=== PATIENT | female | born 1975 | race Caucasian/White ===

== ENCOUNTER 2016-12-19 18:43 | Emergency (ER) | payer MEDICAID ==
[~2016-12-19] VITALS: Ht 170.2 cm; Wt 77.7 kg
[~2016-12-19 18:43] MED LIST: ACET325T45 PO; ALBU18HF INHALATION; AMO500 PO; IBUP-1542 PO; MED4DP PO
[2016-12-19 19:03] VITALS: Ht 170.2 cm; Wt 77.7 kg
[2016-12-19] MEDS ORDERED: ONDANSETRON (ODT) 4 MG TAB ODT STA (20:45)
[2016-12-19] MEDS ORDERED: ALBUTEROL 0.5% (NEB) 2.5 MG/0.5 ML AMP NEB STA (20:45)
[2016-12-19] MEDS ORDERED: IPRATROPIUM (NEB) 0.5 MG/2.5 ML AMP NEB STA (20:45)
[2016-12-19] MEDS ORDERED: METHYLPREDNISOLONE 125 MG INJ IM STA (20:45)
[2016-12-19] MEDS ORDERED: ACET/BUTAL/CAFF/CODEINE CAP PO ONE (21:00)
--- NOTE | 2016-12-19 21:30 | ERD ---
ER Documentation Chief Complaint Date/Time DATE: 12/19/16 TIME: 21:27 Chief Complaint BUSTILLO X3 DAYS +SOB, DENIES COUGH +FEVER, +NAUSEA ONLY HPI 41-year-old female presents here in emergency department for complaint of dryness of breath, wheezing, headaches fever on-and-off and nausea started 2 days ago. Patient denies any cough. Patient has been having wheezing. Patient is complaining of headache, throbbing pain, 4/10 scale, not better or worse with anything. Patient has been having on and off fever, did not take any medication stop and symptoms. Patient is complaining of nausea but denies any vomiting. Patient denies abdominal pain. Patient denies any chest pain. Patient denies any flank pain. Patient denies hematuria or dysuria. Patient denies any other symptoms. ROS All systems reviewed and are negative except as per history of present illness. Medications Home Meds Active Scripts Methylprednisolone* (Medrol* DOSE PACK) 4 Mg/Dose-Pack Tab.ds.pk, 4 MG PO . DIRECTED, #1 PACKET Prov:SHEA REDDING PA-C 03/05/16 Albuterol Sulfate* (Ventolin HFA*) 18 Gm Hfa.aer.ad, 2 PUFF INHALATION Q4H, #1 INHALER Prov:SHEA REDDING PA-C 03/05/16 Ibuprofen* (Ibuprofen*) 600 Mg Tablet, 600 MG PO Q6H Y for pa, #30 TAB Prov:ZACKARY DAMICO ASSEMBLER 1ST SHIFT 09/10/15 Amoxicillin* (Amoxicillin*) 500 Mg Cap, 500 MG PO TID for 10 Days, CAP Prov:ZACKARY DAMICO ASSEMBLER 1ST SHIFT 09/10/15 Reported Medications Ibuprofen* (Motrin*) Unknown Strength Tab, PO Q6H Y for PAIN AND OR ELEVATED TEMP, #30 09/10/15 Acetaminophen* (Acetaminophen*) 325 Mg Tablet, 650 MG PO Q4H Y for PAIN AND OR ELEVATED TEMP, TAB 03/04/15 Allergies Allergies: Coded Allergies: No Known Allergies (Verified Allergy, Mild, 12/19/16) PMhx/Soc Medical and Surgical Hx: pt denies Surgical Hx History of Surgery: Yes (C. SECTION X1) Anesthesia Reaction: No Hx Neurological Disorder: No Hx Respiratory Disorders: No Hx Cardiac Disorders: No Hx Psychiatric Problems: No Hx Miscellaneous Medical Probl: Yes (MIGRAINES) Hx Alcohol Use: No Hx Substance Use: No Hx Tobacco Use: No Smoking Status: Never smoker FmHx Family History: No coronary disease, No diabetes, No other Physical Exam Vitals Vital Signs Date Time Temp Pulse Resp B/P Pulse Ox O2 Delivery O2 Flow Rate FiO2 12/19/16 21:03 88 20 99 21 12/19/16 19:03 98.8 85 20 156/93 100 Physical Exam GENERAL: The patient is well developed and appropriate for usual state of health, in no apparent distress. HEENT: Atraumatic. Ears: Normal tympanic membrane, no erythema or bulging. No ear canal swelling. No ear discharge. Nose: normal nasal turbinates, no erythema or swelling. Normal nasal discharge. Throat: oropharynx clear. No tonsillar swelling or tonsillar exudates. No lymphadenopathy. Tenderness on palpation of the frontal sinus and maxillary sinus area. CHEST: Diffuse wheezing bilaterally. There are no rales, crackles or rhonchi. HEART: Regular rate and rhythm. No murmurs, clicks, rubs or gallops. No S3 or S4. ABDOMEN: Soft, nontender and nondistended. Good bowel sounds. No rebound or guarding. No gross peritonitis. No gross organomegaly or masses. No Gresham sign or McBurney point tenderness. BACK: No midline or flank tenderness. EXTREMITIES: Equal pulses bilaterally. There is no peripheral clubbing, cyanosis or edema. No focal swelling or erythema. Full range of motion. Grossly neurovascularly intact. NEURO: Alert and oriented. Cranial nerves 2-12 intact. Motor strength in all 4 extremities with 5/5 strength. Sensation grossly intact. Normal speech and gait. Negative Romberg sign. Negative pronator drift. SKIN: There is no apparent rash or petechia. The skin is warm and dry. HEMATOLOGIC AND LYMPHATIC: There is no evidence of excessive bruising or lymphedema. No gross cervical, axillary, or inguinal lymphadenopathy. Results 24 hrs Current Medications Medications (Trade) Dose Ordered Sig/Alva Route PRN Reason Start Time Stop Time Status Last Admin Dose Admin Albuterol (Proventil 0.5% (Neb)) 5 mg ONCE STAT NEB 12/19/16 20:45 12/19/16 20:47 DC 12/19/16 21:03 Ipratropium [place] (Atrovent 0.02% (Neb)) 0.5 mg ONCE STAT NEB 12/19/16 20:45 12/19/16 20:47 DC 12/19/16 21:03 Methylprednisolone Sodium Succinate (Solu-Medrol) 125 mg ONCE STAT IM 12/19/16 20:45 12/19/16 20:47 DC 12/19/16 21:17 Acetam/Butalbital/ Caffeine/Codeine (Fioricet/ Codeine) 1 cap ONCE ONCE PO 12/19/16 21:00 12/19/16 21:01 DC 12/19/16 21:43 Ondansetron HCl (Zofran Odt) 4 mg ONCE STAT ODT 12/19/16 20:45 12/19/16 20:48 DC 12/19/16 21:16 Breathing treatment of albuterol and Atrovent was given here in emergency department, after treatment, patient's lungs sounds are clear and patient's oxygenation is better. Patient verbalized feeling much better.Patient was given medication for pain here in emergency department, after treatment, patient verbalized feeling much better. Patient's pain is improved.Patient was given Zofran here in the emergency department. After treatment, patient was able to tolerate po fluids here in the emergency department without any vomiting. There is no signs and symptoms of dehydration. PROCEDURE: CT head without Contrast CLINICAL INDICATION: Headache TECHNIQUE: Transaxial images were made through the head on a multi-slice scanner without intravenous contrast. Coronal and sagittal images were subsequently reformatted. One or more of the following dose reduction techniques were used: - Automated exposure control. - Adjustment of the mA and/or kV according to patient size. - Use of iterative reconstruction technique. Radiation dose: CTDIvol = 38.38 mGy; DLP = 554.95 mGy-cm. COMPARISON: None FINDINGS: The calvarium appears intact. Inflammatory changes seen involve the sphenoid sinus to the left of midline, the left ethmoid in the left frontal sinuses. The mastoid air cells are well-aerated.. The ventricles are normal in size and there is no midline shift. No intracranial bleed, mass, or extra-axial fluid collection is identified. There is good campos-white matter differentiation. IMPRESSION: 1. Sphenoid, left ethmoid and left frontal sinusitis. 2. Otherwise, unremarkable noncontrast enhance CT scan of the head. Physician Handy Date Time Electronically viewed and signed by Physician Handy on 12/19/2016 22:10 RH/ CC: ZACKARY DAMICO ASSEMBLER 1ST SHIFT PROCEDURE: XR Chest AP portable CLINICAL INDICATION: Asthma exacerbation TECHNIQUE: An AP portable radiograph of the chest was submitted. COMPARISON: 03/05/2016 FINDINGS: Support Hardware: None Cardiovascular: The cardiovascular silhouette appears unremarkable. Lung Murillo: The lung murillo appear clear with no nodule, alveolar infiltrate, or interstitial prominence evident. Pleural Spaces: No pneumothorax or pleural effusion is identified. Osseous Structures: The osseous structures appear intact. Soft Tissues: The soft tissues appear unremarkable. IMPRESSION: Stable and unremarkable portable chest. Physician Handy Date Time Electronically viewed and signed by Physician Handy on 12/19/2016 21:58 RH/ CC: ZACKARY DAMICO ASSEMBLER 1ST SHIFT Procedures/MDM Medical Decision Making: Patient symptoms are most likely consistent with acute bronchitis with acute sinusitis, most likely is viral initially but most can be having atypical infection with it because of the fever will be treated with antibiotic. There is low suspicion for Pneumonia at this time since patients lungs sounds are clear, patient O2 saturation is normal and patient doesnt show any respiratory distress. Patients chest xray doesnt show infiltrates or any other cardiopulmonary emergencies at this time. There is low suspicion for other cardiopulmonary emergencies at this time such as CHF, Pulmonary Embolism, Pneumothorax, Aortic Aneurysm or any other cardiopulmonary emergencies at this time. There is low suspicion for sepsis. Patient appears well and is hemodynamically stable. Fever is controlled with medicines. . There is low suspicion for neurological emergencies at this time since patients neurologic exam is normal. Patient did not have any altered level consciousness , vomiting, changes in balance or memory after incident. Patients CT scan of the head does not show any neurological emergencies at this time. Headache may be also from migraine. Disposition: Home. Condition: Stable Prescriptions: Azithromycin, Zyrtec, Flonase, ibuprofen and albuterol, Fioricet with codeine, Zofran, Prednisone Instructions: Patient is advised to take medications as prescribed. Patient is advised to rest. Patient advised to increase fluid intake, do humidifier at home and if possible, do salt water gargles. Patient is advised that if symptoms are worse, shortness of breath, uncontrolled fever, stridor, vomiting, worst signs and symptoms to return to emergency department immediately. Otherwise, patient is advised to follow up with primary doctor in 5-7 days. Departure Diagnosis: Primary Impression: Headache Headache type: unspecified Headache chronicity pattern: acute headache Intractability: not intractable Qualified Code: R51 - Acute nonintractable headache, unspecified headache type Additional Impressions: Acute bronchitis Bronchitis organism: unspecified organism Qualified Code: J20.9 - Acute bronchitis, unspecified organism Acute sinusitis Sinusitis location: maxillary Recurrence: not specified as recurrent Qualified Code: J01.00 - Acute maxillary sinusitis, recurrence not specified Condition: Stable Patient Instructions: Acute Bronchitis, Acute Sinusitis, Self-Care for Headaches Additional Instructions: Patient is advised to take medications as prescribed. Patient is advised to rest. Patient advised to increase fluid intake, do humidifier at home and if possible, do salt water gargles. Patient is advised that if symptoms are worse, shortness of breath, uncontrolled fever, stridor, vomiting, worst signs and symptoms to return to emergency department immediately. Otherwise, patient is advised to follow up with primary doctor in 5-7 days. ZACKARY DAMICO NP Dec 19, 2016 21:29
--- NOTE | 2016-12-19 21:58 | RADRPT ---
PROCEDURE: XR Chest AP portable CLINICAL INDICATION: Asthma exacerbation TECHNIQUE: An AP portable radiograph of the chest was submitted. COMPARISON: 03/05/2016 FINDINGS: Support Hardware: None Cardiovascular: The cardiovascular silhouette appears unremarkable. Lung Culp: The lung culp appear clear with no nodule, alveolar infiltrate, or interstitial promi nence evident. Pleural Spaces: No pneumothorax or pleural effusion is identified. Osseous Structures: The osseous structures appear intact. Soft Tissues: The soft tissues appear unremarkable. IMPRESSION: Stable and unremarkable portable chest. Physician Handy Date Time Electronically viewed and signed by Quique Lynne Physician on 12/19/2016 21:58 RH/
--- NOTE | 2016-12-19 22:11 | RADRPT ---
PROCEDURE: CT head without Contrast CLINICAL INDICATION: Headache TECHNIQUE: Transaxial images were made through the head on a multi-slice scanner without intraveno us contrast. Coronal and sagittal images were subsequently reformatted. One or more of the following dose reduction techniques were used: - Automated exposure control. - Adjustment of the mA and/or kV according to patient size. - Use of iterative reconstruction technique. Radiation dose: CTDIvol = 38.38 mGy; DLP = 554.95 mGy-cm. COMPARISON: None FINDINGS: The calvarium appears intact. Inflammatory changes seen involve the sphenoid sinus to the left of m idline, the left ethmoid in the left frontal sinuses. The mastoid air cells are well-aerated.. The ventricles are normal in size and there is no midline shift. No intracranial bleed, mass, or extra-axial fluid collection is identified. There is good campos-white matter differentiation. IMPRESSION: 1. Sphenoid, left ethmoid and left frontal sinusitis. 2. Otherwise, unremarkable noncontrast enhance CT scan of the head. Physician Handy Date Time Electronically viewed and signed by Physician Handy on 12/19/2016 22:10 /
[2016-12-19] MEDS ORDERED: PRED50TA PO (22:34)
[2016-12-19] MEDS ORDERED: CETI10CA PO (22:34)
[2016-12-19] MEDS ORDERED: IBUP-1542 PO (22:34)
[2016-12-19] MEDS ORDERED: FLUT9.9S NASAL (22:34)
[2016-12-19] MEDS ORDERED: FIORICET PO (22:34)
[2016-12-19] MEDS ORDERED: ALBU8.5H3 INH (22:34)
[2016-12-19] MEDS ORDERED: GUAI473L22 PO (22:34)
[2016-12-19] MEDS ORDERED: AZIT250T94 PO (22:34)
[2016-12-19 22:55] VITALS: BP 121/65; PULSE 99; RESP 18
== END 2016-12-19 22:56 | disposition home or self-care (01) ==
LOC: FTE 18:43
DX: R51 Headache (principal); J20.9 Acute bronchitis, unspecified; J01.00 Acute maxillary sinusitis, unspecified; R06.02 Shortness of breath; R11.0 Nausea
CPT/HCPCS: 70450; 71010; 94664; 96372; J2930; Z7502; Z7610

== ENCOUNTER 2017-02-04 22:41 | Emergency (ER) | payer MEDICAID ==
[~2017-02-04 22:41] MED LIST changes: +ALBU8.5H3 INH; +AZIT250T94 PO; +CETI10CA PO; +FIORICET PO; +FLUT9.9S NASAL; +GUAI473L22 PO; +PRED50TA PO
--- NOTE | 2017-02-04 23:24 | ERD ---
ER Documentation Chief Complaint Date/Time DATE: 02/04/17 TIME: 23:23 Chief Complaint Vaginal spotting started tonight HPI 41-year-old female presents to emergency department for complaints of vaginal bleeding started tonight. Patient describes the bleeding as spotting, denies any abdominal pain or flank pain. Patient is 7 para 3 3. Patient states that she started to have the spotting after having sexual intercourse. Patient denies any fever or chills. Patient denies any nausea or vomiting. LMP 11/18/2016. ROS All systems reviewed and are negative except as per history of present illness. Medications Home Meds Active Scripts Acetamin/Butalbital/Caffeine* (Fioricet*) [id number] Tab, 1 TAB PO Q6H Y for PAIN, #30 TAB Prov:ZACKARY DAMICO NP 12/19/16 Prednisone* (Prednisone*) 50 Mg Tablet, 50 MG PO DAILY, #5 TAB Prov:ZACKARY DAMICO NP 12/19/16 Albuterol Sulfate* (Proair HFA*) 8.5 Gm Hfa.aer.ad, 2 PUFF INH Q4H Y for WHEEZING AND SOB, #1 INHALER Prov:ZACKARY DAMICO NP 12/19/16 Guaifenesin-Codeine Phosphate* (Guaifenesin* AC Cough Syrup) 473 Ml Liquid, 5 ML PO Q4H Y for COUGH, #120 ML Prov:ZACKARY DAMICO NP 12/19/16 Cetirizine Hcl* (Zyrtec*) 10 Mg Capsule, 10 MG PO DAILY, #30 TAB.CHEW Prov:ZACKARY DAMICO NP 12/19/16 Fluticasone Propionate (Flonase Allergy Relief) 9.9 Ml [place].susp, 1 SPRAY NASAL BID, #1 BOTTLE TO EACH NOSTRIL Prov:ZACKARY DAMICO NP 12/19/16 Ibuprofen* (Motrin*) 600 Mg Tab, 600 MG PO Q6H Y for PAIN AND OR ELEVATED TEMP, #30 TAB Prov:ZACKARY DAMICO NP 12/19/16 Azithromycin* (Zithromax*) 250 Mg Tablet, 250 MG PO .ZPACK DIRECTED, #6 TAB TAKE 500 MG (2 TABS) THE FIRST DAY THEN 250 MG (1 TAB) DAYS 2-5 Prov:ZACKARY DAMICO NP 12/19/16 Methylprednisolone* (Medrol* DOSE PACK) 4 Mg/Dose-Pack Tab.ds.pk, 4 MG PO . DIRECTED, #1 PACKET Prov:SHEA REDDING PA-C 03/05/16 Albuterol Sulfate* (Ventolin HFA*) 18 Gm Hfa.aer.ad, 2 PUFF INHALATION Q4H, #1 INHALER Prov:SHEA REDDING PA-C 03/05/16 Ibuprofen* (Ibuprofen*) 600 Mg Tablet, 600 MG PO Q6H Y for pa, #30 TAB Prov:ZACKARY DAMICO NP 09/10/15 Amoxicillin* (Amoxicillin*) 500 Mg Cap, 500 MG PO TID for 10 Days, CAP Prov:ZACKARY DAMICO NP 09/10/15 Reported Medications Ibuprofen* (Motrin*) Unknown Strength Tab, PO Q6H Y for PAIN AND OR ELEVATED TEMP, #30 09/10/15 Acetaminophen* (Acetaminophen*) 325 Mg Tablet, 650 MG PO Q4H Y for PAIN AND OR ELEVATED TEMP, TAB 03/04/15 Allergies Allergies: Coded Allergies: No Known Allergies (Verified Allergy, Mild, 12/19/16) PMhx/Soc History of Surgery: Yes (C. SECTION X1) Anesthesia Reaction: No Hx Neurological Disorder: No Hx Respiratory Disorders: No Hx Cardiac Disorders: No Hx Psychiatric Problems: No Hx Miscellaneous Medical Probl: Yes (MIGRAINES) Hx Alcohol Use: No Hx Substance Use: No Hx Tobacco Use: No FmHx Family History: No coronary disease, No diabetes, No other Physical Exam Physical Exam GENERAL: The patient is well developed and appropriate for usual state of health, in no apparent distress. CHEST: Clear to auscultation bilaterally. There are no rales, wheezes or rhonchi. HEART: Regular rate and rhythm. No murmurs, clicks, rubs or gallops. No S3 or S4. ABDOMEN: Soft, nontender and nondistended. Good bowel sounds. No rebound or guarding. No gross peritonitis. No gross organomegaly or masses. No Gresham sign or McBurney point tenderness. BACK: No midline or flank tenderness. EXTREMITIES: Equal pulses bilaterally. There is no peripheral clubbing, cyanosis or edema. No focal swelling or erythema. Full range of motion. Grossly neurovascularly intact. NEURO: Alert and oriented. Cranial nerves 2-12 intact. Motor strength in all 4 extremities with 5/5 strength. Sensation grossly intact. Normal speech and gait. SKIN: There is no apparent rash or petechia. The skin is warm and dry. HEMATOLOGIC AND LYMPHATIC: There is no evidence of excessive bruising or lymphedema. No gross cervical, axillary, or inguinal lymphadenopathy. VAGINAL: Small amount of blood in the vaginal vault, cervical os is closed. No adnexal tenderness or cervical motion tenderness noted. Result Diagram: 02/04/17 2325 Results 24 hrs Laboratory Tests Test 02/04/17 23:27 02/04/17 23:35 White Blood Count 10.010^3/ul Red Blood Count 4.1810^6/ul Hemoglobin 12.7g/dl Hematocrit 36.9% Mean Corpuscular Volume 88.3fl Mean Corpuscular Hemoglobin 30.4pg Mean Corpuscular Hemoglobin Concent 34.4g/dl Red Cell Distribution Width 12.4% Platelet Count 18327^3/UL Mean Platelet Volume 11.0fl Neutrophils % 58.4% Lymphocytes % 28.4% Monocytes % 8.9% Eosinophils % 3.4% Basophils % 0.6% Nucleated Red Blood Cells % 0.0/100WBC Neutrophils # 5.810^3/ul Lymphocytes # 2.810^3/ul Monocytes # 0.910^3/ul Eosinophils # 0.310^3/ul Basophils # 0.110^3/ul Nucleated Red Blood Cells # 0.010^3/ul Beta HCG, Quantitative 617053.0mIU/ml Urine Color LT. YELLOW Urine Clarity CLEAR Urine pH 6.5 Urine Specific [place] 1.015 Urine Ketones NEGATIVE Urine Nitrite NEGATIVE Urine Bilirubin NEGATIVE Urine Urobilinogen 0.2 E.U./dL Urine Leukocyte Esterase NEGATIVE Urine Microscopic RBC 10-25/HPF Urine Microscopic WBC 0-2/HPF Urine Squamous Epithelial Cells FEW Urine Bacteria FEW Urine Hemoglobin 2+ Urine Glucose NEGATIVE% Urine Total Protein NEGATIVE PROCEDURE: Obstetrical ultrasound. CLINICAL INDICATION: Vaginal bleeding. TECHNIQUE: Multiple sonographic images of the pelvis were obtained with transabdominal technique. Images were obtained with campos scale and color Doppler. COMPARISON: No prior studies are available for comparison. FINDINGS: No abnormal uterine mass is identified. There is an intrauterine gestational sac with a pole identified. heart tones of 184 beats per minute are identified. The crown-rump length averages 3.04 cm, compatible with 10 weeks and 0 days. The mean sac diameter averages 3.30 cm, compatible with 8 weeks and 3 days. A yolk sac is identified. A small subchorionic collection is identified. There is no pelvic free fluid. Bilateral ovaries are not visualized. There is no suspicious adnexal mass identified. IMPRESSION: Single live intrauterine with an estimated gestational age of 9 weeks and 2 days, with an ultrasound SUZANNA of 09/07/2017. Small subchorionic hemorrhage. Bilateral ovaries not visualized. .Iggy Salas MD, MD Date Time Electronically viewed and signed by .Iggy Salas MD, MD on 02/05/2017 01:12 .T/ CC: ZACKARY DAMICO ARTILLERY OFFICER Procedures/MDM Medical Decision Making: Patients vaginal bleeding is most likely consistent of possible threatened . Patient does not show any evidence of hypovolemic shock. Patients hemoglobin and hematocrit is stable. There is low suspicion for ectopic . JASON results show 9 week with subchorionic hemorrhage. BetaHCGQuantitative is appropriate for .The patient is Rh+, does not need RhoGAM this time. There is no signs of symptoms of dehydration. There is low suspicion for sepsis. Patient appears well and is hemodynamically stable. Disposition: Home. Condition: Stable Instructions: Patient is advised to do bed rest, avoid heavy lifting, and avoid having sex until cleared by OB doctor. Patient is advised to follow up with OB doctor or here at the ER in 48 hours for reevaluation of symptoms, repeat beta HCG quantitative and ultrasound. Patient is advised that is symptoms are worst, severe bleeding, dizziness, severe abdominal pain, fever, worst signs and symptoms to return to the emergency department immediately. Departure Diagnosis: Primary Impression: Vaginal bleeding in patient at less than 20 weeks gestation Additional Impressions: Subchorionic bleed Fetus number: single or unspecified fetus Trimester: unspecified trimester Qualified Code: O41.8X90 - Subchorionic bleed, unspecified trimester, not applicable or unspecified fetus Intrauterine Condition: Stable Patient Instructions: Bleeding During Early Additional Instructions: Patient is advised to do bed rest, avoid heavy lifting, and avoid having sex until cleared by OB doctor. Patient is advised to follow up with OB doctor or here at the ER in 48 hours for reevaluation of symptoms, repeat beta HCG quantitative and ultrasound. Patient is advised that is symptoms are worst, severe bleeding, dizziness, severe abdominal pain, fever, worst signs and symptoms to return to the emergency department immediately. ZACKARY DAMICO NP Feb 04, 2017 23:24
[2017-02-05 00:02] LABS: ADD SCAN DIFF NO
[2017-02-05 00:05] LABS: BASOPHIL # 0.1 10^3/ul (0.0-0.1); BASOPHILS % 0.6 % (0.0-2.0); EOSINOPHILS # 0.3 10^3/ul (0.0-0.5); EOSINOPHILS % 3.4 % (0.0-7.0); HEMATOCRIT 36.9 % (37.0-47.0); HEMOGLOBIN 12.7 g/dl (12.0-16.0); LYMPHOCYTES # 2.8 10^3/ul (0.8-2.9); LYMPHOCYTES % 28.4 % (15.0-51.0); MEAN CORPUSCULAR HEMOGLOBIN 30.4 pg (29.0-33.0); MEAN CORPUSCULAR HGB CONC 34.4 g/dl (32.0-37.0); MEAN CORPUSCULAR VOLUME 88.3 fl (82.0-101.0); MONOCYTE # 0.9 10^3/ul (0.3-0.9); MONOCYTES % 8.9 % (0.0-11.0); NEUTROPHIL # 5.8 10^3/ul (1.6-7.5); NEUTROPHILS % 58.4 % (39.0-77.0); PLATELET COUNT 219 10^3/UL (140-415); RED BLOOD COUNT 4.18 10^6/ul (4.20-5.40); RED CELL DISTRIBUTION WIDTH 12.4 % (11.5-14.5)
[2017-02-05 00:17] LABS: ADD UMIC YES; URINE BILIRUBIN (Dip) NEGATIVE (NEGATIVE); URINE BLOOD (Dip) 2+ (NEGATIVE); URINE COLOR LT. YELLOW (YELLOW); URINE GLUCOSE (Dip) NEGATIVE (NEGATIVE); URINE KETONES (Dip) NEGATIVE (NEGATIVE); URINE LEUKOCYTE ESTERASE (Dip) NEGATIVE (NEGATIVE); URINE NITRITE (Dip) NEGATIVE (NEGATIVE); URINE TOTAL PROTEIN (Dip) NEGATIVE (NEGATIVE); URINE UROBILINOGEN (Dip) 0.2 E.U./dL (0.1-1.0)
[2017-02-05 01:11] LABS: SQUAMOUS EPITHELIAL CELL,UR FEW
[2017-02-05 01:12] LABS: BACTERIA,URINE FEW
--- NOTE | 2017-02-05 01:13 | RADRPT ---
PROCEDURE: Obstetrical ultrasound. CLINICAL INDICATION: Vaginal bleeding. TECHNIQUE: Multiple sonographic images of the pelvis were obtained with transabdominal technique. Images were obtained with campos scale and color Doppler. COMPARISON: No prior studies are available for comparison. FINDINGS: No abnormal uterine mass is identified. There is an intrauterine gestational sac with a pole i dentified. heart tones of 184 beats per minute are identified. The crown-rump length ave rages 3.04 cm, compatible with 10 weeks and 0 days. The mean sac diameter averages 3.30 cm, compatib le with 8 weeks and 3 days. A yolk sac is identified. A small subchorionic collection is identified. There is no pelvic free fluid. Bilateral ovaries are not visualized. There is no suspicious adnexal mass identified. IMPRESSION: Single live intrauterine with an estimated gestational age of 9 weeks and 2 days, with an ultrasound SUZANNA of 09/07/2017. Small subchorionic hemorrhage. Bilateral ovaries not visualized. .Iggy Salas MD, MD Date Time Electronically viewed and signed by .Iggy Salas MD, on 02/05/2017 01:12 .T/
[2017-02-05 03:07] VITALS: BP 137/74; PULSE 71; RESP 16
== END 2017-02-05 03:07 | disposition home or self-care (01) ==
LOC: FTE 22:41
DX: O20.9 Hemorrhage in early pregnancy, unspecified (principal); O41.8X90 Other specified disorders of amniotic fluid and membranes, unspecified trimester, not applicable or unspecified; Z3A.09 9 weeks gestation of pregnancy
CPT/HCPCS: 36415; 76801; 81001; 81003; 84702; 85025; 86900; 86901

== ENCOUNTER 2017-07-23 21:14 | Outpatient (CLI) | payer MEDICAID ==
[~2017-07-23] VITALS: Ht 160 cm; Wt 82.9 kg
[~2017-07-23 21:14] MED LIST changes: -AMO500 PO; +AMOX500C2 PO
[2017-07-23 21:58] VITALS: Ht 160 cm; Wt 82.9 kg
[2017-07-23 22:09] LABS: ADD UMIC NO; UR ASCORBIC ACID NEGATIVE (NEGATIVE); UR BACTERIA FEW /HPF (NONE SEEN); UR BILIRUBIN (Dip) NEGATIVE (NEGATIVE); UR BLOOD (Dip) NEGATIVE (NEGATIVE); UR CLARITY SLIGHTLY CLOUDY (CLEAR); UR COLOR YELLOW (YELLOW); UR GLUCOSE (Dip) NEGATIVE (NEGATIVE); UR KETONES (Dip) NEGATIVE (NEGATIVE); UR LEUKOCYTE ESTERASE (Dip) NEGATIVE Leu/ul (NEGATIVE); UR MUCUS FEW /HPF (NONE SEEN); UR NITRITE (Dip) NEGATIVE (NEGATIVE); UR RBC 1 /HPF (0-5); UR SPECIFIC GRAVITY (Dip) 1.014 (1.003-1.030); UR SQUAMOUS EPITHELIAL CELL MANY /HPF (FEW); UR TOTAL PROTEIN (Dip) NEGATIVE (NEGATIVE); UR UROBILINOGEN (Dip) NEGATIVE (NEGATIVE)
[2017-07-23] MEDS ORDERED: HYDR250V5 IM (22:22)
--- NOTE | 2017-07-23 22:52 | TRIAGE ---
OB Triage Datetime Report Generated by CPN: 07/23/2017 22:52 Datetime: 07/23/2017 22:51 Stage of : OB Triage Datetime: 07/23/2017 22:03 Vaginal Exam Dilatation (cms): 1.0 Effacement (%): 50 Station: -3 Exam By: gstratton rn Datetime: 07/23/2017 22:00 Labor Evaluation Frequency: 12-14 Monitor Mode: External Duration (sec)2399: 60-80 Pattern: Normal: <= 5 Contractions in 10 Minutes Contraction Comments: IRREGULAR PATTERN Heart Rate FHR Baseline Rate: 135 Monitor Mode: External US FHR Baseline Changes: No Baseline Change Variability: Moderate 6-25 bpm Accelerations: 15X15 Decelerations: None Category: Category I Datetime: 07/23/2017 21:45 Stage of : OB Triage Maternal Assessment Level of Consciousness: Fully Conscious Headache: Denies Blurred Vision: No Respiratory Effort: Unlabored; Regular Rhythm; Equal Expansion Nausea/Vomiting: Denies RUQ Epigastric Pain: Denies Facial Edema: None Fall Risk Assessment History of Falling: (0) No Secondary Diagnosis: (0) No Ambulatory Aid: (0) Bedrest/Nurse Assist IV Therapy: (0) No Gait: (0) Normal/Bedrest/Immobile Mental Status: (0) Oriented to Own Ability Fall Score: 0 Fall Risk Score Definition: No Risk: No action required Datetime: 07/23/2017 21:44 Time of Arrival: 07/23/2017 21:04 EGA: 35.1 Arrived By: Ambulatory Arrived From: Home Chief Complaint: UC'S SINCE 16:00 Movement: Present Contractions: Irregular Contractions: Q5MIN Rupture of Membranes: Denies Vaginal Bleeding: None Vaginal Discharge: Denies Abdominal Trauma: Not Applicable Patient Complaints: Contractions Time Provider Notified: 07/23/2017 22:00 Provider Notified: UAJE Initial Plan: EFM, CALL OB Datetime: 07/23/2017 21:36 Pain Assessment Pain Scale: 4 Pain Type: Pressure Pain Location: Abdomen Pain Goal: 0 Datetime: 07/23/2017 21:33 Monitor Mode: Palpation Resting Tone [place]: Relaxed Monitor Mode: External US
--- NOTE | 2017-07-23 22:56 | PN ---
Triage Information Date/Time Reason for visit: Uterine contractions Weeks of Gestation 35w 1d /Para , h/o PTD by in 1996 with 2 subsequent VBACs Hypertention: induced Objective Heart Rate: 130's Contractions: >10 Minutes Apart Exam /3 Results/Medications Results 24 hrs Laboratory Tests Test 07/23/17 21:55 Urine Color YELLOW Urine Clarity SLIGHTLY CLOUDY A Urine pH 6.0 Urine Specific [place] 1.014 Urine Ketones NEGATIVE Urine Nitrite NEGATIVE Urine Bilirubin NEGATIVE Urine Urobilinogen NEGATIVE Urine Leukocyte Esterase NEGATIVE Urine Microscopic RBC 1 Urine Microscopic WBC 2 Urine Squamous Epithelial Cells MANY A Urine Bacteria FEW A Urine Mucus FEW A Urine Hemoglobin NEGATIVE Urine Glucose NEGATIVE Urine Total Protein NEGATIVE Disposition: Discharge Assessment/Plan 42 y/o at 35w 1d with contractions -not in active labor -getting Alize -f/u in clinic. Patient with moderately elevated BPs followed in clinic, will be getting f/u in clinic for BPs per patient report. FAUZIA WILLIS Jul 23, 2017 22:56
== END 2017-07-23 23:15 | disposition home or self-care (01) ==
LOC: L-D 21:14 → OBT 21:14
PROVIDERS: ATTEND Obstetrics & Gynecology
DX: O62.9 Abnormality of forces of labor, unspecified (principal); O13.3 Gestational [pregnancy-induced] hypertension without significant proteinuria, third trimester; Z3A.35 35 weeks gestation of pregnancy
CPT/HCPCS: 81001; Z7500; 81003; G0463

== ENCOUNTER 2017-07-27 16:58 | Outpatient (CLI) | payer MEDICAID ==
[~2017-07-27] VITALS: Ht 160 cm; Wt 80.5 kg
[~2017-07-27 16:58] MED LIST changes: -ACET325T45 PO; -ALBU18HF INHALATION; -ALBU8.5H3 INH; -AMOX500C2 PO; -AZIT250T94 PO; -CETI10CA PO; -FIORICET PO; -FLUT9.9S NASAL; -GUAI473L22 PO; +HYDR250V5 IM; -IBUP-1542 PO; -MED4DP PO; -PRED50TA PO
[2017-07-27 17:20] VITALS: Ht 160 cm; Wt 80.5 kg
[2017-07-27 17:21] VITALS: BP 141/69; PULSE 71; RESP 18
--- NOTE | 2017-07-27 17:38 | RADRPT ---
PROCEDURE: OB ultrasound for biophysical profile CLINICAL INDICATION: PIH. TECHNIQUE: Multiple sonographic images of the pelvis were obtained. Transabdominal view of the gr avid uterus are available for review. The images were reviewed on a PACS workstation. COMPARISON: 02/05/2017. FINDINGS: breathing movement = 2/2 tone = 2/2 motion = 2/2 Quantitative amniotic fluid volume = 2/2 MELINDA = 8.4 cm Single live intrauterine with cardiac activity at 168 beats per minute. There is a fundal placenta without previa or abruption. IMPRESSION: 1. Single living intrauterine gestation in cephalic position. 2. Biophysical profile = 8/8. 3. MELINDA = 8.4 cm. RPTAT: [facility] Physician Oswaldo Date Time Electronically viewed and signed by Physician Oswaldo on 07/27/2017 17:38 /
[2017-07-27] MEDS ORDERED: PREN1TAB13 PO (17:43)
[2017-07-27 17:54] LABS: BASOPHILS % 0.3 % (0.0-2.0); EOSINOPHILS # 0.2 10^3/ul (0.0-0.5); EOSINOPHILS % 2.9 % (0.0-7.0); HEMOGLOBIN 11.9 g/dl (12.0-16.0); LYMPHOCYTES # 1.8 10^3/ul (0.8-2.9); LYMPHOCYTES % 28.9 % (15.0-51.0); MEAN CORPUSCULAR HEMOGLOBIN 30.7 pg (29.0-33.0); MEAN CORPUSCULAR VOLUME 87.6 fl (82.0-101.0); MEAN PLATELET VOLUME 12.3 fl (7.4-10.4); MONOCYTE # 0.6 10^3/ul (0.3-0.9); MONOCYTES % 9.3 % (0.0-11.0); NEUTROPHIL # 3.6 10^3/ul (1.6-7.5); NEUTROPHILS % 58.3 % (39.0-77.0); PLATELET COUNT 170 10^3/UL (140-415); RED BLOOD COUNT 3.88 10^6/ul (4.20-5.40); RED CELL DISTRIBUTION WIDTH 12.8 % (11.5-14.5); WHITE BLOOD COUNT 6.2 10^3/ul (4.8-10.8)
[2017-07-27 18:18] LABS: ADD UMIC NO; UR ASCORBIC ACID NEGATIVE (NEGATIVE); UR BILIRUBIN (Dip) NEGATIVE (NEGATIVE); UR BLOOD (Dip) NEGATIVE (NEGATIVE); UR CLARITY SLIGHTLY CLOUDY (CLEAR); UR COLOR YELLOW (YELLOW); UR GLUCOSE (Dip) NEGATIVE (NEGATIVE); UR KETONES (Dip) NEGATIVE (NEGATIVE); UR LEUKOCYTE ESTERASE (Dip) NEGATIVE Leu/ul (NEGATIVE); UR MUCUS FEW /HPF (NONE SEEN); UR NITRITE (Dip) NEGATIVE (NEGATIVE); UR RBC 1 /HPF (0-5); UR SPECIFIC GRAVITY (Dip) 1.017 (1.003-1.030); UR SQUAMOUS EPITHELIAL CELL FEW /HPF (FEW); UR TOTAL PROTEIN (Dip) NEGATIVE (NEGATIVE); UR UROBILINOGEN (Dip) NEGATIVE (NEGATIVE)
[2017-07-27 18:27] LABS: INR 0.97; PROTIME 12.9 Sec (12.2-14.2)
[2017-07-27 18:28] LABS: PARTIAL THROMBOPLASTIN TIME 26.3 Sec (25.0-35.0)
[2017-07-27 18:29] LABS: ALBUMIN 3.1 g/dl (3.3-4.9); ALBUMIN/GLOBULIN RATIO 0.83; BILIRUBIN,INDIRECT 0.1 mg/dl (0-1.1); BILIRUBIN,TOTAL 0.1 mg/dl (0.2-1.3); CALCIUM 8.9 mg/dl (8.4-10.2); CREATININE 0.61 mg/dl (0.44-1.00); POTASSIUM 3.7 mmol/L (3.5-5.1); TOTAL PROTEIN 6.8 g/dl (6.1-8.1); URIC ACID 6.4 mg/dl (3.1-7.9)
--- NOTE | 2017-07-27 18:43 | TRIAGE ---
OB Triage Datetime Report Generated by CPN: 07/27/2017 18:42 Datetime: 07/27/2017 18:04 Labor Evaluation Frequency: 0 Monitor Mode: External Pattern: Normal: <= 5 Contractions in 10 Minutes Resting Tone [place]: Relaxed Heart Rate FHR Baseline Rate: 140 Variability: Moderate 6-25 bpm Accelerations: 15X15 Decelerations: None Category: Category I Pain Assessment Pain Presence: None/Denies Datetime: 07/27/2017 17:28 Assessment Type: Admission Assessment Respiratory Effort: Unlabored; Regular Rhythm; Equal Expansion Breath Sounds, Left: Clear and Equal Breath Sounds, Right: Clear and Equal Lower Extremities Edema: None Degree: None Upper Extremities Edema: None Degree: None Facial Edema: None Fall Risk Assessment History of Falling: (0) No Secondary Diagnosis: (0) No Ambulatory Aid: (0) Bedrest/Nurse Assist IV Therapy: (0) No Gait: (0) Normal/Bedrest/Immobile Mental Status: (0) Oriented to Own Ability Fall Score: 0 Fall Risk Score Definition: No Risk: No action required Datetime: 07/27/2017 17:27 Time of Arrival: 07/27/2017 16:50 EGA: 35.5 Arrived By: Ambulatory Arrived From: Dr. Garner Chief Complaint: PT. HERE FROM CLINIC WITH A REFERRAL FOR PIH WORK UP AND BPP WITH MELINDA Movement: Present Contractions: Denies/Absent Rupture of Membranes: Denies Vaginal Bleeding: None Vaginal Discharge: Denies Recent Sexual Intercouse: Denies Abdominal Trauma: Not Applicable Patient Complaints: None Time Provider Notified: 07/27/2017 17:30 Provider Notified: DR. ROY Initial Plan: TOCO/ US. PIH LABS, BPP WITH MELINDA Datetime: 07/27/2017 17:14 Maternal Assessment Level of Consciousness: Fully Conscious DTR's/Clonus: DTRs 2+; No Clonus Headache: Denies Blurred Vision: No Nausea/Vomiting: Denies RUQ Epigastric Pain: Denies Facial Edema: None Pain Assessment Pain Presence: None/Denies Datetime: 07/27/2017 17:07 Stage of : OB Triage Datetime: 07/23/2017 23:00 Labor Evaluation Frequency: 7-14 Monitor Mode: External Duration (sec)2399: 50-80 Pattern: Normal: <= 5 Contractions in 10 Minutes Heart Rate FHR Baseline Rate: 135 Monitor Mode: External US FHR Baseline Changes: No Baseline Change Variability: Moderate 6-25 bpm Accelerations: 15X15 Datetime: 07/23/2017 21:45 Fall Score: 0 Fall Risk Score Definition: No Risk: No action required Datetime: 07/23/2017 21:44 EGA: 35.1
--- NOTE | 2017-07-27 19:02 | PN ---
Triage Information Date/Time Reason for visit: sent in from clinic for elevated BP Weeks of Gestation 35.5 /Para Diabetes: none Hypertention: induced Additional information most BPs were within normal limits and labs were normal Objective Vital Signs Date Time Temp Pulse Resp B/P Pulse Ox O2 Delivery O2 Flow Rate FiO2 07/27/17 17:21 98.5 71 18 141/69 Room Air Heart Rate: 140's Heart Rate Comments reactive Exam deferred Results/Medications Result Diagram: 07/27/17 1721 07/27/17 1721 Results 24 hrs Laboratory Tests Test 07/27/17 17:21 07/27/17 17:45 White Blood Count 6.2 # Red Blood Count 3.88 L Hemoglobin 11.9 L Hematocrit 34.0 L Mean Corpuscular Volume 87.6 Mean Corpuscular Hemoglobin 30.7 Mean Corpuscular Hemoglobin Concent 35.0 Red Cell Distribution Width 12.8 Platelet Count 170 # Mean Platelet Volume 12.3 H Neutrophils % 58.3 Lymphocytes % 28.9 Monocytes % 9.3 Eosinophils % 2.9 Basophils % 0.3 Nucleated Red Blood Cells % 0.0 Neutrophils # 3.6 Lymphocytes # 1.8 Monocytes # 0.6 Eosinophils # 0.2 Basophils # 0.0 Nucleated Red Blood Cells # 0.0 Prothrombin Time 12.9 Prothrombin Time Ratio 1.0 INR International Normalized Ratio 0.97 Activated Partial Thromboplast Time 26.3 Fibrinogen 512.0 H Sodium Level 135 Potassium Level 3.7 Chloride Level 107 Carbon Dioxide Level 23 Anion Gap 9 Blood Urea Nitrogen 8 Creatinine 0.61 Glucose Level 89 Uric Acid 6.4 Calcium Level 8.9 Total Bilirubin 0.1 L Direct Bilirubin 0.00 Indirect Bilirubin 0.1 Aspartate Amino Transf (AST/SGOT) 33 Alanine Aminotransferase (ALT/SGPT) 36 Alkaline Phosphatase 174 H Total Protein 6.8 Albumin 3.1 L Globulin 3.70 H Albumin/Globulin Ratio 0.83 Urine Color YELLOW Urine Clarity SLIGHTLY CLOUDY A Urine pH 6.0 Urine Specific [place] 1.017 Urine Ketones NEGATIVE Urine Nitrite NEGATIVE Urine Bilirubin NEGATIVE Urine Urobilinogen NEGATIVE Urine Leukocyte Esterase NEGATIVE Urine Microscopic RBC 1 Urine Microscopic WBC 1 Urine Squamous Epithelial Cells FEW Urine Mucus FEW A Urine Hemoglobin NEGATIVE Urine Glucose NEGATIVE Urine Total Protein NEGATIVE Imaging Results 1. Single living intrauterine gestation in cephalic position. 2. Biophysical profile = 05/30. 3. MELINDA = 8.4 cm. Disposition: Discharge Assessment/Plan patient has 209 mg of proteinuria in 24 hours PIH is diagnosis will place on bed + pelvic rest until delivery deliver for severe symptoms and or 37 weeks steroids were given TAWANDA HERRING MD Jul 27, 2017 19:02
[2017-07-27] MEDS ORDERED: BETAMET NA PHOS/AC(6 MG/ML) 5ML INJ IM ONE (19:51)
--- NOTE | 2017-07-27 20:16 | TRIAGE ---
OB Triage Datetime Report Generated by CPN: 07/27/2017 20:15 Datetime: 07/27/2017 19:05 Stage of : OB Triage Datetime: 07/27/2017 18:52 Frequency: 0 Pattern: Normal: <= 5 Contractions in 10 Minutes Resting Tone [place]: Relaxed FHR Baseline Rate: 130 Monitor Mode: External US Variability: Moderate 6-25 bpm Accelerations: 15X15 Decelerations: None Category: Category I Pain Presence: None/Denies
== END 2017-07-27 20:30 | disposition home or self-care (01) ==
LOC: OBT 16:58 → L-D 16:59 → OBT 20:30
PROVIDERS: ATTEND Obstetrics & Gynecology
DX: O13.3 Gestational [pregnancy-induced] hypertension without significant proteinuria, third trimester (principal); Z3A.35 35 weeks gestation of pregnancy
CPT/HCPCS: 76818; 80053; 81001; 84560; 85025; 85384; 85610; 85730; 96372; J0702; Z7500; 81003; G0463

== ENCOUNTER 2017-07-28 18:23 | Outpatient (CLI) | payer MEDICAID ==
[~2017-07-28] VITALS: Ht 160 cm; Wt 80.1 kg
[~2017-07-28 18:23] MED LIST changes: +PREN1TAB13 PO
[2017-07-28] MEDS ORDERED: BETAMET NA PHOS/AC(6 MG/ML) 5ML INJ IM ONE (18:30)
[2017-07-28 18:40] VITALS: BP 136/79; PULSE 74; Ht 160 cm; Wt 80.1 kg
--- NOTE | 2017-07-28 18:49 | PN ---
Triage Information Date/Time July 28, 2017 Reason for visit: Referred back for second injection of betamethasone Weeks of Gestation 35 weeks and 6 days /Para 7 para 3 Diabetes: none Hypertention: induced Additional information Was diagnosed as mild PIH on 07 27 and receive a dose of betamethasone Here for a second dose of betamethasone Pressures are stable Appears to be asymptomatic Denies headache blurred vision or epigastric pain Objective Vital Signs Date Time Temp Pulse Resp B/P Pulse Ox O2 Delivery O2 Flow Rate FiO2 07/28/17 18:40 98.7 74 136/79 Heart Rate: 140's Heart Rate Comments Reactive Contractions: None Exam Deferred Disposition: Discharge Assessment/Plan -induced hypertension at 35 weeks and 6 day We will follow in 3 days for on a stress test and biophysical profile Consider delivering patient at 37 weeks TAWANDA HERRING MD Jul 28, 2017 18:49
--- NOTE | 2017-07-28 19:43 | RADRPT ---
PROCEDURE: Obstetrical ultrasound for biophysical profile CLINICAL INDICATION: Biophysical profile. . TECHNIQUE: Obstetrical ultrasound of the uterus for biophysical profile. Transabdominal views are obtained. COMPARISON: 07/28/2017 FINDINGS: Single intrauterine gestation. Presentation: Cephalic. Placenta: Fundal No evidence of placental abruption. No evidence of placenta previa. breathing movement = 2/2 tone = 2/2 motion = 2/2 MELINDA = 2/2 MELINDA = 10.6 cm heart rate: 135 beats per minute IMPRESSION: Single intrauterine gestation. Biophysical profile 05/30 RPTAT: [facility]ADD .Zach East MD, MD Date Time Electronically viewed and signed by .Zach East MD, on 07/28/2017 19:42 .B/
--- NOTE | 2017-07-29 01:06 | TRIAGE ---
OB Triage Datetime Report Generated by CPN: 07/29/2017 01:06 Datetime: 07/28/2017 19:00 Stage of : OB Triage Datetime: 07/28/2017 18:37 Stage of : OB Triage Assessment Type: Triage Level of Consciousness: Fully Conscious DTR's/Clonus: DTRs 2+; No Clonus Headache: Denies Blurred Vision: No Respiratory Effort: Unlabored; Regular Rhythm; Equal Expansion Breath Sounds, Left: Clear and Equal Breath Sounds, Right: Clear and Equal Nausea/Vomiting: Denies RUQ Epigastric Pain: Denies Facial Edema: None Temperature Route: Axillary History of Falling: (0) No Secondary Diagnosis: (0) No Ambulatory Aid: (0) Bedrest/Nurse Assist IV Therapy: (0) No Gait: (0) Normal/Bedrest/Immobile Mental Status: (0) Oriented to Own Ability Fall Score: 0 Fall Risk Score Definition: No Risk: No action required Frequency: 0 Monitor Mode: External Pattern: Normal: <= 5 Contractions in 10 Minutes Resting Tone [place]: Relaxed FHR Baseline Rate: 135 Monitor Mode: External US Variability: Moderate 6-25 bpm Accelerations: 10X10 Decelerations: None Category: Category I Pain Scale: 0 Pain Presence: None/Denies Pain Type: N/A Pain Goal: 3 Pain Relief Measures: Comfort Measures Datetime: 07/28/2017 18:35 Arrived By: Ambulatory Arrived From: Home Chief Complaint: F/U BPP BETAMETHASONE INJECTION #2. DENIES LEAKING, BLEEDING OR UC'S Movement: Present Contractions: Denies/Absent Rupture of Membranes: Denies Vaginal Bleeding: None Vaginal Discharge: Denies Recent Sexual Intercouse: Denies Abdominal Trauma: Not Applicable Patient Complaints: None Time Provider Notified: 07/28/2017 19:00 Provider Notified: Dr Luis Initial Plan: MONITOR, BPP, BETAMETHASONE #2 Datetime: 07/27/2017 17:28 Fall Score: 0 Fall Risk Score Definition: No Risk: No action required Datetime: 07/27/2017 17:27 EGA: 35.5
== END 2017-07-28 20:25 | disposition home or self-care (01) ==
LOC: OBT 18:23 → L-D 18:23 → OBT 20:25
PROVIDERS: ATTEND Obstetrics & Gynecology
DX: O13.3 Gestational [pregnancy-induced] hypertension without significant proteinuria, third trimester (principal); Z3A.35 35 weeks gestation of pregnancy
CPT/HCPCS: 76818; 96372; J0702; Z7500; G0463

== ENCOUNTER 2017-07-31 14:52 | Inpatient (IN) | payer MEDICAID ==
[~2017-07-31] VITALS: Ht 160 cm; Wt 78.8 kg
[~2017-07-31 14:52] MED LIST changes: -HYDR250V5 IM
[2017-07-31 15:43] VITALS: Ht 160 cm; Wt 78.8 kg
[2017-07-31 15:44] VITALS: BP 148/72; PULSE 68; RESP 18
[2017-07-31 16:24] LABS: BASOPHILS % 0.4 % (0.0-2.0); EOSINOPHILS # 0.2 10^3/ul (0.0-0.5); EOSINOPHILS % 2.5 % (0.0-7.0); HEMATOCRIT 34.9 % (37.0-47.0); HEMOGLOBIN 12.2 g/dl (12.0-16.0); LYMPHOCYTES % 27.3 % (15.0-51.0); MEAN CORPUSCULAR VOLUME 88.6 fl (82.0-101.0); MEAN PLATELET VOLUME 12.5 fl (7.4-10.4); MONOCYTE # 0.8 10^3/ul (0.3-0.9); MONOCYTES % 10.6 % (0.0-11.0); NEUTROPHIL # 4.3 10^3/ul (1.6-7.5); NEUTROPHILS % 58.8 % (39.0-77.0); PLATELET COUNT 175 10^3/UL (140-415); RED BLOOD COUNT 3.94 10^6/ul (4.20-5.40); RED CELL DISTRIBUTION WIDTH 12.9 % (11.5-14.5); WHITE BLOOD COUNT 7.3 10^3/ul (4.8-10.8)
[2017-07-31 16:39] LABS: INR 0.86; PROTIME 11.7 Sec (12.2-14.2); PT RATIO 0.9
[2017-07-31 16:40] LABS: PARTIAL THROMBOPLASTIN TIME 25.5 Sec (25.0-35.0)
[2017-07-31 16:50] LABS: ALBUMIN 3.4 g/dl (3.3-4.9); BILIRUBIN,INDIRECT 0.1 mg/dl (0-1.1); BILIRUBIN,TOTAL 0.1 mg/dl (0.2-1.3); CALCIUM 9.2 mg/dl (8.4-10.2); CREATININE 0.62 mg/dl (0.44-1.00); POTASSIUM 4.1 mmol/L (3.5-5.1); TOTAL PROTEIN 6.8 g/dl (6.1-8.1); URIC ACID 6.1 mg/dl (3.1-7.9)
--- NOTE | 2017-07-31 17:38 | RADRPT ---
PROCEDURE: US OB biophysical profile. CLINICAL INDICATION: evaluation, hypertension TECHNIQUE: Multiple sonographic images of the pelvis were obtained. The images were reviewed on a PACS workstation. COMPARISON: Obstetrical ultrasound from 07/28/2017 FINDINGS: There is a single viable intrauterine gestation. Cardiac activity is present with 131 beats per min [place]. There is a vertex presentation. The placenta is fundal and left lateral in location. There is no evidence of placental abruption. There is a normal amount of amniotic fluid with an MELINDA = 12.0 cm. Biophysical profile: movement 2/2 tone 2/2. breathing 2/2 MELINDA 2/2 Total 05/30 RPTAT: AA . IMPRESSION: Normal biophysical profile. Physician Jameel Date Time Electronically viewed and signed by Physician Jameel on 07/31/2017 17:38 /
[2017-07-31 18:46] LABS: URINE BLOOD (Dip) POC 1+ (NEGATIVE)
[2017-07-31 19:03] LABS: ADD UMIC NO; UR ASCORBIC ACID 20 mg/dL (NEGATIVE); UR BILIRUBIN (Dip) NEGATIVE (NEGATIVE); UR BLOOD (Dip) NEGATIVE (NEGATIVE); UR CLARITY CLEAR (CLEAR); UR COLOR YELLOW (YELLOW); UR GLUCOSE (Dip) NEGATIVE (NEGATIVE); UR KETONES (Dip) NEGATIVE (NEGATIVE); UR LEUKOCYTE ESTERASE (Dip) NEGATIVE Leu/ul (NEGATIVE); UR NITRITE (Dip) NEGATIVE (NEGATIVE); UR SPECIFIC GRAVITY (Dip) 1.018 (1.003-1.030); UR TOTAL PROTEIN (Dip) NEGATIVE (NEGATIVE); UR UROBILINOGEN (Dip) NEGATIVE (NEGATIVE)
[2017-07-31] MEDS: LACTATED RINGER'S 1,000 ML IV SCH (19:43)
[2017-07-31] MEDS ORDERED: LACTATED RINGER'S 1,000 ML IV PRN (19:49)
[2017-07-31] MEDS ORDERED: HYDROCODONE/APAP (5/325) TAB PO PRN (20:00)
[2017-07-31] MEDS ORDERED: LIDOCAINE 1% (MPF) 30 ML INJ INJ PRN (20:00)
[2017-07-31] MEDS ORDERED: METHYLERGONOVINE 0.2 MG INJ IM PRN (20:00)
[2017-07-31] MEDS ORDERED: CARBOPROST 250 MCG INJ IM PRN (20:00)
[2017-07-31] MEDS ORDERED: BUTORPHANOL 2 MG INJ IV PRN ×2 (20:00)
[2017-07-31] MEDS ORDERED: OXYTOCIN 30 UNITS/LR 500 ML IV SCH ×2 (20:00→22:00)
[2017-07-31] MEDS ORDERED: MISOPROSTOL 200 MCG TAB PR PRN (20:00)
[2017-07-31] MEDS ORDERED: IBUPROFEN 600 MG TAB PO PRN (20:00)
[2017-07-31] MEDS ORDERED: OXYTOCIN 30 UNITS/LR 500 ML IV PRN (20:00)
[2017-07-31] MEDS ORDERED: AMPICILLIN 2 GM/NS (PMX) 100 ML IV ONE (20:00)
[2017-07-31] MEDS ORDERED: CA GLUCONATE (GM) 10% 10ML INJ IV PRN (22:00)
[2017-07-31] MEDS ORDERED: MAGNESIUM SULFATE 4 GM/100 ML 100 ML IV SCH (22:00)
[2017-07-31] MEDS ORDERED: MINERAL OIL LIGHT 10 ML VIAL TOP PRN (22:00)
[2017-07-31] MEDS: MAGNESIUM SULFATE 20 GM/500 ML 500 ML IV SCH (22:54)
--- NOTE | 2017-08-01 01:18 | TRIAGE ---
OB Triage Datetime Report Generated by CPN: 08/01/2017 01:17 Datetime: 08/01/2017 00:15 Stage of : Labor Maternal Assessment Level of Consciousness: Fully Conscious DTR's/Clonus: DTRs 2+; No Clonus Headache: Denies Breath Sounds, Left: Clear and Equal Breath Sounds, Right: Clear and Equal Nausea/Vomiting: Denies RUQ Epigastric Pain: Denies Temperature Route: Oral Labor Evaluation Frequency: IRRE Monitor Mode: External Duration (sec)2399: 40-60 Quality: Mild Pattern: Normal: <= 5 Contractions in 10 Minutes Resting Tone [place]: Relaxed Heart Rate FHR Baseline Rate: 135 Monitor Mode: External US Variability: Moderate 6-25 bpm Accelerations: 15X15 Decelerations: None Category: Category I Pain Assessment Pain Scale: 3 Pain Presence: Intermittent Pain Type: Contraction Pain Location: Abdomen Pain Goal: 5 Pain Relief Measures: Comfort Measures Datetime: 07/31/2017 23:25 Stage of : Labor Labor Evaluation Frequency: 2-9 Monitor Mode: External Duration (sec)2399: 40-90 Quality: Mild Pattern: Normal: <= 5 Contractions in 10 Minutes Resting Tone [place]: Relaxed Heart Rate FHR Baseline Rate: 145 Monitor Mode: External US FHR Baseline Changes: No Baseline Change Variability: Moderate 6-25 bpm Accelerations: 15X15 Decelerations: None Category: Category I Datetime: 07/31/2017 22:25 Stage of : Labor Labor Evaluation Frequency: 2-7 Monitor Mode: External Duration (sec)2399: 50-90 Quality: Mild Pattern: Normal: <= 5 Contractions in 10 Minutes Resting Tone [place]: Relaxed Heart Rate FHR Baseline Rate: 145 Monitor Mode: External US Variability: Moderate 6-25 bpm Accelerations: 15X15 Decelerations: None Category: Category I Datetime: 07/31/2017 22:05 Stage of : Labor Datetime: 07/31/2017 21:40 Stage of : Labor Datetime: 07/31/2017 21:39 Stage of : Labor Datetime: 07/31/2017 21:30 Assessment Type: Admission Assessment Vaginal Bleeding: None Maternal Assessment Level of Consciousness: Fully Conscious DTR's/Clonus: DTRs 2+; No Clonus Headache: Denies Blurred Vision: No Respiratory Effort: Unlabored; Regular Rhythm; Equal Expansion Breath Sounds, Left: Clear and Equal Breath Sounds, Right: Clear and Equal Nausea/Vomiting: Denies RUQ Epigastric Pain: Denies Lower Extremities Edema: None Degree: None Upper Extremities Edema: None Degree: None Facial Edema: None Fall Risk Assessment History of Falling: (0) No Secondary Diagnosis: (0) No Ambulatory Aid: (0) Bedrest/Nurse Assist IV Therapy: (20) Yes Gait: (0) Normal/Bedrest/Immobile Mental Status: (0) Oriented to Own Ability Fall Score: 20 Fall Risk Score Definition: No Risk: No action required Pain Assessment Pain Scale: 5 Pain Presence: Intermittent Pain Type: Contraction Pain Location: Abdomen Pain Goal: 5 Datetime: 07/31/2017 21:25 Stage of : Labor Labor Evaluation Frequency: OCCA Monitor Mode: External Duration (sec)2399: 70-100 Quality: Mild Pattern: Normal: <= 5 Contractions in 10 Minutes Resting Tone [place]: Relaxed Heart Rate FHR Baseline Rate: 140 Monitor Mode: External US Variability: Moderate 6-25 bpm Accelerations: 15X15 Decelerations: None Category: Category I Datetime: 07/31/2017 21:20 Time of Arrival: 07/31/2017 21:20 EGA: 36.2 Arrived By: Ambulatory Arrived From: Other Unit in Hospital Datetime: 07/31/2017 21:00 Labor Evaluation Frequency: IRREGULAR Monitor Mode: External Duration (sec)2399: 60-100 Quality: Mild Pattern: Normal: <= 5 Contractions in 10 Minutes Resting Tone [place]: Relaxed Heart Rate FHR Baseline Rate: 135 Monitor Mode: External US FHR Baseline Changes: No Baseline Change Variability: Moderate 6-25 bpm Accelerations: 15X15 Decelerations: None Category: Category I Datetime: 07/31/2017 20:00 Labor Evaluation Frequency: IRRITABILITY NOTED Monitor Mode: External Pattern: Normal: <= 5 Contractions in 10 Minutes Heart Rate FHR Baseline Rate: 135 Monitor Mode: External US FHR Baseline Changes: No Baseline Change Variability: Moderate 6-25 bpm Accelerations: 15X15 Decelerations: None Category: Category I Datetime: 07/31/2017 19:58 Vaginal Exam Dilatation (cms): 4.0 Effacement (%): 50 Station: -2 Exam By: Nasim ZHANG RN Vaginal Bleeding: None Cervix, Consistency: Soft Cervix, Consistency: Firm Cervix, Position: Posterior Presentation 'A': Cephalic Datetime: 07/31/2017 19:16 Labor Evaluation Frequency: 0 Monitor Mode: External Duration (sec)2399: 0 Resting Tone [place]: Relaxed Contraction Comments: PT DENIES UC'S AT THIS TIME Heart Rate FHR Baseline Rate: 145 Monitor Mode: External US Variability: Moderate 6-25 bpm Accelerations: 15X15 Decelerations: None Category: Category I Datetime: 07/31/2017 19:10 Assessment Type: Admission Assessment Maternal Assessment Level of Consciousness: Fully Conscious DTR's/Clonus: DTRs 2+; No Clonus Headache: Denies Blurred Vision: No Respiratory Effort: Unlabored; Regular Rhythm; Equal Expansion Breath Sounds, Left: Clear and Equal Breath Sounds, Right: Clear and Equal Nausea/Vomiting: Denies RUQ Epigastric Pain: Denies Lower Extremities Edema: None Degree: None Upper Extremities Edema: None Degree: None Facial Edema: None Fall Risk Assessment History of Falling: (0) No Secondary Diagnosis: (0) No Ambulatory Aid: (0) Bedrest/Nurse Assist IV Therapy: (0) No Gait: (0) Normal/Bedrest/Immobile Mental Status: (0) Oriented to Own Ability Fall Score: 0 Fall Risk Score Definition: No Risk: No action required Datetime: 07/31/2017 18:02 Labor Evaluation Frequency: 0 Monitor Mode: External Duration (sec)2399: 0 Quality: Mild Pattern: Normal: <= 5 Contractions in 10 Minutes Resting Tone [place]: Relaxed Heart Rate FHR Baseline Rate: 140 Monitor Mode: External US Variability: Moderate 6-25 bpm Accelerations: 15X15 Decelerations: None Category: Category I Datetime: 07/31/2017 16:59 Labor Evaluation Frequency: 0 Monitor Mode: External Duration (sec)2399: 0 Resting Tone [place]: Relaxed Heart Rate FHR Baseline Rate: 140 Monitor Mode: External US Variability: Moderate 6-25 bpm Accelerations: 15X15 Decelerations: None Category: Category I Datetime: 07/31/2017 16:01 Labor Evaluation Frequency: 0 Monitor Mode: External Duration (sec)2399: 0 Resting Tone [place]: Relaxed Heart Rate FHR Baseline Rate: 140 Monitor Mode: External US Variability: Moderate 6-25 bpm Accelerations: 15X15 Decelerations: None Category: Category I Datetime: 07/31/2017 15:55 Assessment Type: Admission Assessment Maternal Assessment Level of Consciousness: Fully Conscious DTR's/Clonus: DTRs 2+; No Clonus Headache: Denies Blurred Vision: No Respiratory Effort: Unlabored; Regular Rhythm; Equal Expansion Breath Sounds, Left: Clear and Equal Breath Sounds, Right: Clear and Equal Nausea/Vomiting: Denies RUQ Epigastric Pain: Denies Lower Extremities Edema: None Degree: None Upper Extremities Edema: None Degree: None Facial Edema: None Fall Risk Assessment History of Falling: (0) No Secondary Diagnosis: (0) No Ambulatory Aid: (0) Bedrest/Nurse Assist IV Therapy: (0) No Gait: (0) Normal/Bedrest/Immobile Mental Status: (0) Oriented to Own Ability Fall Score: 0 Fall Risk Score Definition: No Risk: No action required Labor Evaluation Frequency: OCCAS Monitor Mode: External Duration (sec)2399: 100-120 Quality: Mild Pattern: Normal: <= 5 Contractions in 10 Minutes Resting Tone [place]: Relaxed Heart Rate FHR Baseline Rate: 140 Monitor Mode: External US Variability: Moderate 6-25 bpm Accelerations: 15X15 Decelerations: None Category: Category I Datetime: 07/31/2017 15:54 Time of Arrival: 07/31/2017 14:50 EGA: 36.2 Arrived By: Ambulatory Arrived From: Home Chief Complaint: NST, BPP Movement: Present Contractions: Denies/Absent Rupture of Membranes: Denies Vaginal Bleeding: None Vaginal Discharge: Denies Recent Sexual Intercouse: Denies Abdominal Trauma: Not Applicable Patient Complaints: Other Time Provider Notified: 07/31/2017 18:00 Provider Notified: DR. NEWELL Initial Plan: NST, BPP Datetime: 07/28/2017 20:22 Stage of : OB Triage Monitor Mode: External Quality: Mild Pattern: Normal: <= 5 Contractions in 10 Minutes Resting Tone [place]: Relaxed Heart Rate FHR Baseline Rate: 130 Monitor Mode: External US FHR Baseline Changes: No Baseline Change Variability: Moderate 6-25 bpm Accelerations: 15X15 Decelerations: None Category: Category I Pain Assessment Pain Scale: 0 Pain Presence: None/Denies Datetime: 07/28/2017 18:37 Fall Score: 0 Fall Risk Score Definition: No Risk: No action required Datetime: 07/27/2017 17:28 Fall Score: 0 Fall Risk Score Definition: No Risk: No action required Datetime: 07/27/2017 17:27 EGA: 35.5 Datetime: 07/23/2017 21:45 Fall Score: 0 Fall Risk Score Definition: No Risk: No action required Datetime: 07/23/2017 21:44 EGA: 35.1
[2017-08-01] MEDS: AMPICILLIN 1 GM/NS (PMX) 50 ML IV SCH ×2 (01:35→04:00)
[2017-08-01] MEDS: LACTATED RINGER'S 1,000 ML IV SCH ×3 (01:41→16:25)
[2017-08-01] MEDS ORDERED: FENTAnyl 2MCG/ML-ROPIV 0.2% 100 ML ONE (03:13)
[2017-08-01] MEDS: OXYTOCIN 30 UNITS/LR 500 ML IV SCH ×2 (04:56→10:54)
--- NOTE | 2017-08-01 05:14 | HP ---
Date/Time of Note Date/Time of Note DATE: 08/01/17 TIME: 04:56 OB - History Hx of Present Free Text/Dictation 42 y.o T2(sab)X1 c/s at 24w f/b x2 was here at triage for NST BPP ,PIH,elevated inhibin with AMA at 36w2d not having significant uterine activities, intact membrane. BPP 8/8 MELINDA 12 CAT I tracing ,but BP 140-160's/high 70's with trace protein in urine ,LFT nl uric acid 6.1 VE 4/50/-2 admitted for delivery , induction/augmentation ampicillin for unknown GBS status Chief Complaint: PIH Estimated Due Date: Aug 26, 2017 : 7 Para: 3 Spontaneous : 3 Therapeutic : 0 Care: Good Care Ultrasounds: Normal mid trimester US Obstetrical Complications: Gestational Hypertension Medical Complications: None Past Family/Social History * Past Medical, Surgical, Family and Obstetric Histories reviewed from chart. Blood Type: O+ Rubella: immune RPR/VDRL: Negative GBS Status: Unknown HBsAG: Negative OB Admission Exam Vital Signs Vital Signs Vital Signs Date Time Temp Pulse Resp B/P Pulse Ox O2 Delivery O2 Flow Rate FiO2 07/31/17 15:44 98.3 68 18 148/72 Room Air Physical Exam HEENT: WNL Heart: Rhythm Normal Lungs: Clear, Equal Abdomen: WNL Extremities: Normal Reflexes: Normal Cervical Dilatation: 4cm Effacement: 50% Station: -2 Membranes: Intact Amniotic Fluid: Unevaluable Heart Rate: 140's Accelerations: Accelerations Present Decelerations: No Decelerations Varibility: Moderate Contractions on Admission: 6-10 Minutes Apart Intensity: Mild Last 72 hours Lab Results CBC & BMP 07/31/17 16:17 Liver Function Test 07/31/17 16:17 Alanine Aminotransferase (ALT/SGPT) 41 Albumin 3.4 Alkaline Phosphatase 181 H Aspartate Amino Transf (AST/SGOT) 33 Direct Bilirubin 0.00 Total Protein 6.8 OB Assessment/Plan Reason for admission: other Other Assessment: IUP 36w2d PIH Plan: Induction EMMY NEWELL MD Aug 01, 2017 05:06
--- NOTE | 2017-08-01 05:21 | LDN ---
Date/Time of Note Date/Time of Note DATE: 08/01/17 TIME: 05:15 Delivery Summary normal vaginal delivery with 1st degree perineal laceration marginal abruptio(5%)ant low seg intact ,intracavity ?mass submucous fibroid advise to be ck after 6weeks with ultrasound Weeks of Gestation 36w3d Placenta Delivered: Spontaneously Meconium: none Episiotomy: No Indication for episiotomy none Perineal laceration: 1 Anesthesia type: Epidural Estimated blood loss: 300 Sponge & Needle done & correct: Yes All needle counts correct: Yes Any foreign bodies felt in the: No Problems: Infant Delivery Information Sex Sex: male Apgars 1 Minute: 9 5 Minute: 9 Suctioning Nose & mouth suctioned at joanna: Yes Delee suction performed: No Umbilical Cord Umbilical cord with: 3 Vessels Cord presentations: nuchal cord Cord Blood was obtained: Yes Mother & Baby Disposition Disposition Mom & Baby to Maternity; Good: Yes Mom transferred to: Other Baby to NICU: No () EMMY NEWELL MD Aug 01, 2017 05:21
[2017-08-01] MEDS: MAGNESIUM SULFATE 20 GM/500 ML 500 ML IV SCH ×2 (08:05→16:27)
[2017-08-01] MEDS ORDERED: ACETAMINOPHEN 325 MG TAB ONE (08:35)
[2017-08-01] MEDS ORDERED: ACETAMINOPHEN 325 MG TAB PO PRN (09:00)
[2017-08-01] MEDS ORDERED: LABETALOL 100 MG TAB ONE (15:21)
[2017-08-01] MEDS: LABETALOL 100 MG TAB PO SCH (15:26)
[2017-08-01] MEDS ORDERED: MISOPROSTOL 200 MCG TAB PR PRN (18:00)
[2017-08-01] MEDS ORDERED: OXYCODONE/ASPIRIN (4.88/325) TAB PO PRN ×2 (18:00)
[2017-08-01] MEDS ORDERED: OXYTOCIN 30 UNITS/LR 500 ML IV PRN (18:00)
[2017-08-01] MEDS ORDERED: WITCH HAZEL/GLYCERIN PAD PR PRN (18:00)
[2017-08-01] MEDS ORDERED: CARBOPROST 250 MCG INJ IM PRN (18:00)
[2017-08-01] MEDS ORDERED: MAGNESIUM SULFATE 2 GM/50 ML 50 ML IVPB ONE (18:00)
[2017-08-01] MEDS ORDERED: LANOLIN 7 GM TUBE TOP PRN (18:00)
[2017-08-01] MEDS ORDERED: BENZOCAINE 20% 56 ML SPRAY TOP PRN (18:00)
[2017-08-01] MEDS ORDERED: METHYLERGONOVINE 0.2 MG INJ IM PRN (18:00)
[2017-08-01] MEDS ORDERED: ZOLPIDEM 5 MG TAB PO PRN (18:00)
[2017-08-01 18:09] VITALS: BP 127/73; PULSE 90; RESP 20
[2017-08-01 19:33] VITALS: BP 118/61; PULSE 83; RESP 18
[2017-08-01 20:45] VITALS: BP 128/70; PULSE 79; RESP 18
[2017-08-01] MEDS: SENNA/DOCUSATE NA (8.6MG/50MG) TAB PO SCH (21:20)
[2017-08-01 21:45] VITALS: BP 127/61; PULSE 86; RESP 18
[2017-08-01 22:45] VITALS: BP 127/68; PULSE 83; RESP 18
[2017-08-01] MEDS: IBUPROFEN 600 MG TAB PO SCH (23:35)
[2017-08-01 23:45] VITALS: BP 130/63; PULSE 88; RESP 18
[2017-08-02] VITALS (9 sets, daily range): BP systolic 120–127; BP diastolic 58–72; PULSE 70–82; RESP 18–20
[2017-08-02] MEDS: MAGNESIUM SULFATE 20 GM/500 ML 500 ML IV SCH ×2 (02:55→05:00)
[2017-08-02] MEDS: IBUPROFEN 600 MG TAB PO SCH ×4 (05:37→23:35)
[2017-08-02 07:40] LABS: BASOPHILS % 0.3 % (0.0-2.0); EOSINOPHILS # 0.1 10^3/ul (0.0-0.5); EOSINOPHILS % 1.2 % (0.0-7.0); HEMATOCRIT 35.3 % (37.0-47.0); HEMOGLOBIN 12.1 g/dl (12.0-16.0); LYMPHOCYTES # 1.9 10^3/ul (0.8-2.9); LYMPHOCYTES % 20.2 % (15.0-51.0); MEAN CORPUSCULAR HGB CONC 34.3 g/dl (32.0-37.0); MEAN CORPUSCULAR VOLUME 87.6 fl (82.0-101.0); MEAN PLATELET VOLUME 12.1 fl (7.4-10.4); MONOCYTE # 0.8 10^3/ul (0.3-0.9); MONOCYTES % 8.4 % (0.0-11.0); NEUTROPHIL # 6.4 10^3/ul (1.6-7.5); NEUTROPHILS % 69.4 % (39.0-77.0); PLATELET COUNT 189 10^3/UL (140-415); RED BLOOD COUNT 4.03 10^6/ul (4.20-5.40); WHITE BLOOD COUNT 9.2 10^3/ul (4.8-10.8)
[2017-08-02] MEDS: LABETALOL 100 MG TAB PO SCH (08:45)
[2017-08-02] MEDS: SENNA/DOCUSATE NA (8.6MG/50MG) TAB PO SCH ×2 (08:45→21:12)
[2017-08-02] MEDS ORDERED: INFLUENZA VIRUS VACCINE 0.5 ML (DISPENSING) IM* ONE (09:00)
--- NOTE | 2017-08-02 17:50 | DS ---
Date/Time of Note Date/Time of Note Home next day DATE: 08/02/17 TIME: 17:48 Obstetrical Discharge Record Final Diagnosis Final Diagnosis: Term delivered Other Final Diagnosis Status post vaginal delivery Vaginal Delivery Obstetrical Delivery: Spontaneous, Successful Complications Preg induced Hypertension Condition on Discharge Physical Assessment Last Vitals: Vital signs stable Voiding: Yes Bowel Movement: Yes Breast: Soft, non-tender, Filling Fundus: Firm Abdomen and Incision: Abdomen is soft bowel sounds present Episiotomy: Perineum is healing Calf Tenderness: No Patient Condition: Good TAWANDA HERRING MD Aug 02, 2017 17:50
[2017-08-02] MEDS ORDERED: IBUP-1542 PO (17:52)
--- NOTE | 2017-08-02 17:52 | PD.PPDC ---
[employer] Discharge Instruction Provider Information Physician Information 42-year-old female vaginal delivery after section at 36 weeks Diagnosis Final Diagnosis: Status post vaginal delivery Condition Patient Condition: Good Diet Diet: Resume Regular Diet Activity/Restrictions Activity: Normal Activity May Shower Restrictions: Nothing in the Vagina Return to Work or School: Sep 18, 2017 Follow-up Follow-up with Physician: 4, Week/Weeks (In clinic) Return to clinic for Comment: Pelvic rest 6 weeks TAWANDA HERRING MD Aug 02, 2017 17:52
[2017-08-03 04:28] VITALS: BP 125/75; PULSE 84; RESP 18
[2017-08-03] MEDS: IBUPROFEN 600 MG TAB PO SCH ×3 (05:59→12:52)
[2017-08-03 08:00] VITALS: BP 135/72; PULSE 58; RESP 18
[2017-08-03] MEDS: SENNA/DOCUSATE NA (8.6MG/50MG) TAB PO SCH (08:53)
[2017-08-03] MEDS ORDERED: DIPHTH/TET/ACEL PERTUSS (ADULT) 0.5 ML VIAL IM* ONE (09:00)
--- NOTE | 2017-08-03 14:50 | NSTRPT ---
NST Information Datetime Report Generated by CPN: 08/03/2017 14:50 Datetime: 07/28/2017 15:01 NST Information EGA: 35.6 Test Number: 6 Time on Monitor: 07/28/2017 15:26 Time off Monitor: 07/28/2017 15:56 NST Duration (Min): 30 Reason for NST: Other Reason for NST Other: Elevated Inhibin Test and Monitor Explained: Monitor Explained; Test Explained; Verbalized Understanding Pulse: 70 Resp: 18 SBP: 126 DBP: 64 Test Evaluation NST Interventions: PO Hydration; Reposition Patient Patient States Movement: Present Contraction Frequency: NONE FHR Baseline : 130 Variability: Moderate 6-25bpm Accelerations: 15X15 FHR Category: Category I NST Results: Reactive Comments: To u/s. MELINDA 8.7cm. CEPHALIC. 1600-Pt home undelivered with PTL precautions. Follow up NS T appointment given. Kick Count instructions reviewed. Pt states understanding. No further que stions asked at this time. Electronically Signed By E-Signature: with User ID: [id number] Datetime: 07/25/2017 15:00 NST Information EGA: 35.3 Time on Monitor: 07/25/2017 15:17 Time off Monitor: 07/25/2017 15:44 NST Duration (Min): 27 Test and Monitor Explained: Monitor Explained; Test Explained; Verbalized Understanding; Breastfee ding Info Given Pulse: 74 Resp: 20 SBP: 130 DBP: 61 Test Evaluation NST Interventions: None Patient States Movement: Present Contraction Frequency: none FHR Baseline : 130 Variability: Moderate 6-25bpm Accelerations: 15X15 Decelerations: None FHR Category: Category I NST Results: Reactive Comments: To u/s. MELINDA 10.0, cephalic presentation. EFM on. Pt has no questions. 1542-Pt home undelivered with PTL precautions, kick count instructions reviewed and follow up NST appt given. States understanding and denies further questions at this time. Electronically Signed By E-Signature: with User ID: [id number] Datetime: 07/21/2017 14:50 NST Information EGA: 34.6 NST Duration (Min): 25 Datetime: 07/18/2017 14:54 NST Information EGA: 34.3 NST Duration (Min): 34 Datetime: 07/11/2017 14:54 NST Information EGA: 33.3 NST Duration (Min): 21 Datetime: 07/07/2017 15:16 NST Information EGA: 32.6 Datetime: 07/07/2017 15:03 NST Duration (Min): 32
== END 2017-08-03 16:08 | disposition home or self-care (01) | DRG 775 ==
LOC: L-D 14:52 → OBT 14:52 → L-D 19:16 → OBT 19:16 → L-D 22:10 → PP1 08-01 20:41
PROVIDERS: ADMIT Obstetrics & Gynecology; ATTEND Obstetrics & Gynecology
PROC: 10E0XZZ Delivery of Products of Conception, External Approach (ICD-10-PCS; principal; 2017-08-01)
PROC: 0HQ9XZZ Repair Perineum Skin, External Approach (ICD-10-PCS; 2017-08-01)
PROC: 3E0P3VZ Introduction of Hormone into Female Reproductive, Percutaneous Approach (ICD-10-PCS; 2017-08-01)
DX: O60.14X0 Preterm labor third trimester with preterm delivery third trimester, not applicable or unspecified (principal); O69.81X0 Labor and delivery complicated by cord around neck, without compression, not applicable or unspecified; O70.0 First degree perineal laceration during delivery; Z3A.36 36 weeks gestation of pregnancy; Z37.0 Single live birth
CPT/HCPCS: 36415; 62319; 76818; 80053; 81003; 83735; 84560; 85025; 85384; 85610; 85730; 86592; 86762; 86900; 86901; 87340; 90686; 90715; G0463; J0290; J2590; J3010; J3475; J7120

== ENCOUNTER 2018-01-08 19:54 | Emergency (ER) | END 2018-01-08 21:30 | disposition home or self-care (01) ==

== ENCOUNTER 2018-02-01 19:03 | Emergency (ER) | END 2018-02-01 20:03 | disposition home or self-care (01) ==

== ENCOUNTER 2018-07-16 16:51 | Emergency (ER) | END 2018-07-16 20:14 | disposition home or self-care (01) ==

== ENCOUNTER 2019-02-21 17:42 | Emergency (ER) | payer MEDICAID ==
[~2019-02-21] VITALS: Ht 167.6 cm; Wt 78.2 kg
[~2019-02-21 17:42] MED LIST changes: +ALBU8.5H8 INH; +AMOX1TAB10 PO; +AZIT250T PO; +IBUP-1542 PO; +PRED20TA PO
[2019-02-21 17:56] VITALS: Ht 167.6 cm; Wt 78.2 kg
[2019-02-21] MEDS ORDERED: KETOROLAC 60 MG INJ IM STA (21:58)
[2019-02-21] MEDS ORDERED: IBUP800T48 PO (23:24)
--- NOTE | 2019-02-21 23:27 | ERD ---
ER Documentation Chief Complaint Chief Complaint Complains of back pain x 2 weeks HPI 43-year-old female presents with back pain. She states is secondary to coughing as she states she has chronic bronchitis. Has had no fever. No trauma. No phlegm when she coughs. No bowel or bladder incontinence. Has not taken any medication for her pain. No dysuria hematuria frequency. ROS All systems reviewed and are negative except as per history of present illness. Medications Home Meds Active Scripts Ibuprofen* (Motrin*) 800 Mg Tab, 800 MG PO Q6, #30 TAB Prov:AKIKO GROSSMAN PA-C 02/21/19 Prednisone* (Prednisone*) 20 Mg Tab, 40 MG PO DAILY for 4 Days, TAB Prov:JUAN PABLO MANSFIELD MD 07/16/18 Azithromycin* (Zithromax*) 250 Mg Tablet, 250 MG PO .ZPACK DIRECTED, #6 TAB TAKE 500 MG (2 TABS) THE FIRST DAY THEN 250 MG (1 TAB) DAYS 2-5 Prov:JUAN PABLO MANSFIELD MD 07/16/18 Albuterol Sulfate* (Proair HFA*) 8.5 Gm Hfa.aer.ad, 2 PUFF INH Q4H PRN for WHEEZ ING AND SOB, #1 INHALER Prov:JUAN PABLO MANSFIELD MD 07/16/18 Prednisone* (Prednisone*) 20 Mg Tab, 40 MG PO DAILY for 4 Days, TAB Prov:JUAN PABLO MANSFIELD MD 07/16/18 Ibuprofen* (Motrin*) 600 Mg Tab, 600 MG PO Q6H PRN for PAIN AND OR ELEVATED TEMP, #30 TAB Prov:ZACKARY DAMICO NP 02/01/18 Ibuprofen* (Motrin*) 600 Mg Tab, 600 MG PO Q6, #30 TAB Prov:МАРИНА MORAN PA-C 01/08/18 Amoxicillin/Potassium Clav (Amox-Clav 875-125 mg Tablet) 875-125 mg Tab, 1 TAB PO BID for 10 Days, #20 TAB Prov:МАРИНА MORAN PA-C 01/08/18 Ibuprofen* (Ibuprofen*) 600 Mg Tablet, 600 MG PO Q6, #30 TAB 0 Refills Prov:TAWANDA HERRING MD 08/02/17 Reported Medications Pnv95/Ferrous Fumarate/FA ( Vitamins Tablet) 1 Each Tablet, 1 EACH PO, TAB 07/27/17 Allergies Allergies: Coded Allergies: No Known Allergies (Verified Allergy, Mild, 12/19/16) PMhx/Soc History of Surgery: Yes (C. SECTION X1) Anesthesia Reaction: No Hx Neurological Disorder: No Hx Respiratory Disorders: No Hx Cardiac Disorders: No Hx Psychiatric Problems: No Hx Miscellaneous Medical Probl: Yes (MIGRAINES) Hx Alcohol Use: No Hx Substance Use: No Hx Tobacco Use: No FmHx Family History: No diabetes Physical Exam Vitals Vital Signs Date Temp Pulse Resp B/P (MAP) Pulse Ox O2 O2 Flow FiO2 Time Delivery Rate 02/21/19 98.5 78 20 142/71 97 17:56 (94) Physical Exam Const: No acute distress Head: Atraumatic Eyes: Normal Conjunctiva ENT: Normal External Ears, Nose and Mouth. Neck: Full range of motion. No meningismus. Resp: Clear to auscultation bilaterally Cardio: Regular rate and rhythm, no murmurs Back Exam: Compartments: Soft Motor: Normal flexion and extension of bilateral hip/knee/ankle/foot Sensation: Intact to light touch throughout Bones: No midline TTP Results 24 hrs Laboratory Tests Test 02/21/19 22:08 02/21/19 22:13 POC Beta HCG, Qualitative NEGATIVE Bedside Urine pH (LAB) 7.0 Bedside Urine Protein (LAB) Negative Bedside Urine Glucose (UA) Negative Bedside Urine Ketones (LAB) Negative Bedside Urine Blood Negative Bedside Urine Nitrite (LAB) Negative Bedside Urine Leukocyte Esterase (L Trace Current Medications Medications Dose Sig/Alva Start Time Status Last (Trade) Ordered Route PRN Stop Time Admin Dose Reason Admin Ketorolac 60 mg ONCE STAT 02/21/19 DC 02/21/19 Tromethamine IM 21:58 02/21/19 22:14 (Toradol) 22:00 Procedures/MDM Patient has back pain as well as coughing. Chest x-ray is negative. Urine is negative. Patient given Toradol. Given copy of x-ray report she can follow-up with primary care. Prescription for Motrin given. Patient counseled regarding my diagnostic impression and care plan. Prior to discharge all questions answered. Pt agrees with treatment plan and understands strict return precautions. Pt is instructed to follow up with primary care provider within 24- 48 hours. Precautionary instructions provided including instructions to return to the ER if not improving or for any worsening or changing symptoms or concerns. Departure Diagnosis: Primary Impression: Back pain Additional Impression: Bronchitis Condition: Stable Patient Instructions: What Is Bronchitis?, Back Pain (Acute Or Chronic) Additional Instructions: Llame al doctor MAANA y nikia joaquin GERSON PARA DENTRO DE 1-2 HUNT.Dgale a la secretaria que nosotros le instruimos hacer esta gerson.Avise o llame si sheehan condicin se empeora antes de la gerson. Regresa aqui si peor o no mejor. AKIKO GROSSMAN PA-C February 21, 2019 23:27
[2019-02-21 23:46] VITALS: BP 164/80; PULSE 66; RESP 18
== END 2019-02-21 23:48 | disposition home or self-care (01) ==
LOC: FTE 17:42
DX: M54.9 Dorsalgia, unspecified (principal); J40 Bronchitis, not specified as acute or chronic
CPT/HCPCS: 71045; 81003; 81025; 96372; J1885; Z7502

== ENCOUNTER 2019-06-30 20:05 | Emergency (ER) | payer MEDICAID ==
[~2019-06-30] VITALS: Ht 162.6 cm; Wt 80.0 kg
[~2019-06-30 20:05] MED LIST changes: +ALBU18HF INHALATION; +BENZ-6 PO; +GUAI5SYR2 PO; +IBUP800T48 PO
[2019-06-30 20:06] VITALS: Ht 162.6 cm; Wt 80.0 kg
[2019-06-30] MEDS ORDERED: ALBUTEROL 0.5% (NEB) 2.5 MG/0.5 ML AMP NEB STA (20:28)
[2019-06-30] MEDS ORDERED: IPRATROPIUM (NEB) 0.5 MG/2.5 ML AMP NEB STA (20:28)
[2019-06-30] MEDS ORDERED: SOD CHLORIDE 0.9% 1,000 ML IV STA (20:28)
[2019-06-30] MEDS ORDERED: DEXAMETHASONE 10 MG/ML 1 ML INJ IV STA (20:28)
[2019-06-30 22:06] VITALS: BP 140/76; PULSE 77; RESP 18
== END 2019-06-30 22:07 | disposition home or self-care (01) ==
LOC: FTE 20:05
DX: R06.2 Wheezing (principal)
CPT/HCPCS: 94644; 96361; 96374; J1100; J7030; Z7502; Z7610; 94664